=== PATIENT | female | born 2000 | race Caucasian/White ===

== ENCOUNTER 2025-06-21 11:43 | Emergency (ER) | payer BC, OTHER, SELFPAY ==
--- OUTSIDE RECORDS SUMMARY | 2025-01-28 17:30 | XMS_ITS ---
Author Organization [facility] Address [address] [place] [address] Care Team Providers Care Public Relations Officer Name Role Phone Migration, Provider Unavailable Unavailable REASON FOR VISIT Multum To Medispan Conversion Encounter Medications Medication SIG (Take, Route, Frequency, Duration) Notes Start Date End Date Status Loratadine 10 MG Tablet 1 tab(s) orally once a day; Duration: 30 days 04/08/2018 Active Fluticasone Propionate 50 MCG/ACT Suspension 1 spray(s) intranasally once a day; Duration: 30 day(s) 04/08/2018 Active ProAir HFA 90 MCG/INH AEROSOL 2 PUFF(S) INHALED 4 TIMES A DAY; Duration: 30 DAYS *Please review and pick correct strength-formulatio n from [facility] options. If intended option is not shown, discontinue and re-order from Quick Search* 07/09/2017 Active (21 DAY) 30 MCG-1.5 MG TABLET TAKE ONE TABLET BY MOUTH DAILY *Please review for potential replacement for e-prescription and drug interaction check* Active Encounters Encounter Location Date Provider Diagnosis [facility] [address] [place] [address] 01/28/2025 Provider Migration Plan Of Treatment Medication Medication Name Sig Start Date Stop Date Notes (21 DAY) 30 MCG-1.5 MG TABLET TAKE ONE TABLET BY MOUTH DAILY *Please review for potential replacement for e-prescription and drug interaction check* Progress Notes * Chloe SALEHOB: 1 (24 yo F)Acc No.[id number]:01/28/2025 Patient: Chloe Lo Provider: :2000 A ge:24 Y S ex:Female Date:01/28/2025 Address:[address] [place] [address] Subjective: * Chief Complaints: * M ultum To Medispan Conversion Encounter * Medications: T akingLoratadine 10 MG Tablet 1 tab(s) orally once a day Fluticasone Propionate 50 MCG/ACT Suspension 1 spray(s) intranasally once a day ProAir HFA 90 MCG/INH AEROSOL 2 PUFF(S) INHALED 4 TIMES A DAY , Notes to Pharmacist: *Please review and pick correct strength-formulation from [facility] options. If intended option is not shown, discontinue and re-order from Quick Search*Taking Loratadine 10 MG Tablet 1 tab(s) orally once a day Taking Fluticasone Propionate 50 MCG/ACT Suspension 1 spray(s) intranasally once a day Taking ProAir HFA 90 MCG/INH AEROSOL 2 PUFF(S) INHALED 4 TIMES A DAY , Notes to Pharmacist: *Please review and pick correct strength-formulation from Medispan options. If intended option is not shown, discontinue and re-order from Quick Search* Plan: * Treatment: * Electronic signature of Prov ider Migration on 06/21/2025 at 12:53 PM EDT Sign off status: Pending * Provider: Date: 0 01/28/2025 Generated for Wilson coronel/Rocio/Enrique on: 1 12:53 PM EDT
--- OUTSIDE RECORDS SUMMARY | 2025-05-03 08:30 | XMS_ITS | Encounter Summary ---
Author Organization [facility] Address [address] [place] [address] Care Team Providers Care Watch Repairer Name Role Phone Donavon Chang MD Primary Care Provider [phone] Reason for Visit * Diagnostic Imaging (Routine) - Closed Specialty Diagnoses / Procedures Referred By Contac t Referred To Contact Obstetrics and Gynecology Diagnoses First trimester Procedures US Ob Transvaginal Donavon Chang MD [address] [facility] [address] [place] [address] Phone: tel: fax: [facility] [place] [address] Phone: tel:[phone] fax:[phone] Referral ID Status Reason Start Date Expiration Date Visits Re quested Visits Authorized [id number] Closed 05/03/2025 08/02/2026 1 1 Encounter Details Date Type Department Care Team (Latest Contact Info) Description 05/03/2025 8:30 AM EDT Ancillary Procedure [facility] [place] [address] First trimester Social History Tobacco Use Types Packs/Day Years Used Date Smoking Tobacco: Never Smokeless Tobacco: Former Quit: 04/03/2025 Alcohol Use Standard Drinks/Week Comments Not Currently 0 (1 standard drink = 0.6 oz pure alcohol) stopped drinking 04/03 when she found out she was [employer]UDIT-[employer] Answer Date Recorded Frequency of Alcohol Consumption Never 09/29/2019 Average Number of Drinks Not on file 020 Frequency of Binge Drinking Not on file 01/2020 Abuse Screen Answer Date Recorded Unsafe at Home or Work/School Not on file Feels Threatened by Someone? Not on file 07/2023 Does Anyone Keep You from Co ntacting Others or Doint Things Outside the Home? Not on file 06/04/2023 Physical Sign of Abuse Present Not on file 1 Housing Stability Answer Date Recorded Current Living Arrangements Not on file 05/24 Potentially Unsafe Housing Conditions Not on sukh e 06/04/2023 Family and Community Support Answer Miles e Recorded Help with Day-to-Day Activities Not on file 06/04/2023 Lonely or Isolated Not on file 06/04/2023 Employment Answer Date Recorded Do you want help finding or keeping work or a gilbert b? Not on file 06/04/2023 Disabilities Answer Date Recorded Concentrating, Remembering, or Making Decisions Difficulty Not on file 06/04/2023 Doing Errands Independently Difficulty Not on fi le 06/04/2023 Education Answer Date Recorded Help with school or training? Not on file Preferred Language Not on file 06/04/2023 Estimated Date of Delivery Comme nts Yes 12/11/2025 Based on last me nstrual period of 03/06/2025, pt states it was very light and only 3 days when she is usually on her period for 5 days. Sex and Gender Information Value Date Recorded Sex Assigned at Female 04/30/2025 8:39 PM EDT Legal Sex Female 2:53 PM EST Gender Identity Not on file Sexual Orientation Straight 04/30/2025 8: 39 PM EDT documented as of this encounter Plan of Treatment Upcoming Encounters Date Type Department Care Team (Late st Contact Info) Description 06/28/2025 8:40 AM EST Routine [facility] [address] [place] [address] Donavon Chang MD [address] [facility] [address] [place] [id number] documented as of this encounter Procedures Procedure Name Priority Date/Time Associated Diagnosis Comments US OB TRANSVAGINAL Routine 05/03/2025 8: 57 AM EDT First trimester documented in this encounter Results * US Ob Transvaginal (05/03/2025 8:57 AM EDT) Anatomical Region Laterality Modality Body Ultrasound 05/03/2025 8:26 AM EDT Narrative 05/09/2025 1:19 PM EDT PAT NAME: BUTCH SALEH MED REC#: [id number] DA: 2000 PAT GEND: F PAT TYPE: O EXAM MILES: [id number] REF PHYS DONAVON CHANG Indication ======== Dating Comparison Studies There are no relevant prior studies to which this study is being compared Method ======= Voluson E6, Transvaginal ultrasound examination. View: Adequate view ========= Luna . Number of fetuses: 1 Single intrauterine present Dating ====== Method of dating: based on the LMP LMP on: 03/06/2025 GA by LMP 8 w + 2 d ARYA by LMP: 12/11/2025 Ultrasound examination on: 05/03/2025 GA by U/S based upon: CRL GA by U/S 8 w + 4 d ARYA by U/S: 12/09/2025 Assigned: based on the LMP, selected on 05/03/2025 Assigned GA 8 w + 2 d Assigned ARYA: 12/11/2025 length 280 d Biometry Standard FHR 176 bpm CRL 20.1 mm 8w 4d 98% [facility] General Evaluation Cardiac activity present. Placenta Too early to evaluate. Amniotic fluid normal. Maternal Structures Uterus / Cervix Uterus: Visualized Uterus position: Retroverted Cervix: Visualized Ovaries / Tubes / Adnexa Rt ovary: Visualized Rt ovary D1 16.9 mm Rt ovary D2 18.5 mm Rt ovary D3 8.0 mm Rt ovary Vol 1.3 cm Lt ovary: Visualized Lt ovary D1 22.2 mm Lt ovary D2 26.1 mm Lt ovary D3 16.90 mm Lt ovary Vol 5.1 cm Impression Single viable intrauterine with normal cardiac activity Recommendation Follow-up as clinically indicated. Colored Leather Setter: RT Ursula Physician: Donavon Chang MD, FACOG Electronically signed by: Donavon Chang MD, FACOG at: 13:19 Procedure Note Donavon Chang MD - 05/09/2025 PAT NAME: BUTCH SALEH MED REC#: [id number] DA: 2000 PAT GEND: F PAT TYPE: O EXAM MILES: [id number] REF PHYS DONAVON CHANG Indication ======== Dating Comparison Studies There are no relevant prior studies to which this study is beingcompared Method ======= Voluson E6, Transvaginal ultrasound examination. View: Adequate view ========= Luna . Number of fetuses: 1 Single intrauterine present Dating ====== Method of dating:based on the LMP LMP on:03/06/2025 GA by LMP8 w + 2 d ARYA by LMP:12/11/2025 Ultrasound examination on:05/03/2025 GA by U/S based upon:CRL GA by U/S8 w + 4 d ARYA by U/S:12/09/2025 Assigned:based on the LMP, selected on 05/03/2025 Assigned GA8 w + 2 d Assigned ARYA:12/11/2025 [id number] d Biometry Standard [id number] bpm CRL20.1 mm 8w 4d 98% [facility] General Evaluation Cardiac activity present. Placenta Too early to evaluate. Amniotic fluid normal. Maternal Structures Uterus / Cervix Uterus:Visualized Uterus position:Retroverted Cervix:Visualized Ovaries / Tubes / Adnexa Rt ovary:Visualized Rt ovary D116.9 mm Rt ovary D218.5 mm Rt ovary D38.0 mm Rt ovary Vol1.3 cm Lt ovary:Visualized Lt ovary D122.2 mm Lt ovary D226.1 mm Lt ovary D316.90 mm Lt ovary Vol5.1 cm Impression Single viable intrauterine with normal cardiac activity Recommendation Follow-up as clinically indicated. Colored Leather Setter: Yris Brito RT Physician: Donavon Chang MD, FACOG Electronically signed by: Donavon Chang MD, FACOG at: 13:19 us Donavon Chang MD [facility] [place] Final Result documented in this encounter Visit Diagnoses Diagnosis First trimester state, incidental documented in this encounter Care Teams Watch Repairer Relationship Specialty Start Date End Date Donavon Chang MD [address] [facility] [address] [place] [id number] PCP - General 04/30/25 documented as of this encounter
--- OUTSIDE RECORDS SUMMARY | 2025-05-03 08:50 | XMS_ITS | Encounter Summary ---
[facility] Address [address] [place] [address] Care Team Providers Care Microbiology Instructor Name Role Phone Sumi Chang MD Primary Care Provider [phone] Reason for Visit * Reason Comments Initial Visit Encounter Details Date Type Department Care Team (Late st Contact Info) Description 05/03/2025 8:50 AM EDT Initial [facility] OBGYN [address] [place] [address] Sumi Chang MD [address] [facility] [address] [place] [address] GA: 8w2d Social History Tobacco Use Types Packs/Day Years [...] e 06/04/2023 Family and Community Support Answer Marcos e Recorded Help with Day-to-Day Activities Not [...] PM EDT documented as of this encounter Last Filed Vital Signs Vital Sign Reading Time Taken Comments Blood Pressure 112/78 05/03/2025 9:29 AM EDT Pulse - - Temperature - - Respiratory Rate - - Oxygen Saturation - - Inhaled Oxygen Concentration - - Weight 66.2 kg (146 lb) 05/03/2025 9:29 AM EDT Height - - Body Mass Index 20.95 04/06/2025 6:34 PM EDT documented in this encounter Progress Notes * Sumi Chang MD - 05/03/2025 8:50 AM EDT Images from the original note were not included. Initial ob visit CC- Here for care of Chloe Saleh is a 24 y.o. female, , who presents for her first obstetrical visit. Patient's last menstrual period was 03/06/2025.. Her ARYA is 12/11/2025, by Last Menstrual Period. Current GA is 8w2d. Initial positive test date : 04/03/25, UPT Her periods are every 29 days. Prior obstetric issues: none Patient's past medical history is significant for: none. Family history of genetic issues (includes FOB): maternal cousin with autism Prior infections concerning in (Rash, fever in last 2 weeks): No Varicella Hx - vaccinated Prior testing for Cystic Fibrosis Carrier or Sickle Cell Trait- none Prepregnancy BMI - Body mass index is 20.95 kg/m??. History of STD: yes GC/CHLAMYDIA Hx of HSV for patient or partner: no Ultrasound Today: yes OB History Para Term AB Living 1 SAB IAB Ectopic Molar Multiple Live Births # Outcome Date GA Lbr Red/2nd Weight Sex Type Anes PTL Lv 1 Current Additional Pertinent History Last Pap : 2023 Result: neg in [facility] Last Completed Pap Smear This patient has no relevant Health Maintenance data. History of abnormal Pap smear: no Family history of uterine, colon, breast, or ovarian cancer: yes - MGM-breast Feelings of Anxiety or Depression: no Tobacco Usage?: No Alcohol/Drug Use?: NO Over the age of 35 at delivery: no Genetic Screening: desires cell free DNA Flu Status: Desires at future appt when in stock PMH Current Outpatient Medications: Vit-Fe Fumarate-FA ( PO), Take by mouth., Disp: , Rfl: Past Medical History: Diagnosis Date Asthma Past Surgical History: Procedure Laterality Date KNEE ACL RECONSTRUCTION WISDOM TOOTH EXTRACTION Review of Systems Review of Systems Patient Reports: nausea, vomiting 2-3 times per week Patient Denies:excessive nausea , excessive vomiting, and vaginal bleeding All systems reviewed and otherwise normal. I have reviewed and agree with the HPI, ROS, and historical information as entered above. Sumi Chang MD BP 112/78 Wt 66.2 kg (146 lb) LMP 03/06/2025 Comment: pt states it was very light and only 3 days when she is usually on her period for 5 days. BMI 20.95 kg/m?? The additional following portions of the patient's history were reviewed and updated as appropriate: allergies, current medications, past family history, past medical history, past social history, past surgical history, and problem list. Physical Exam General: well developed; well nourished no acute distress mentation appropriate Chest/Respiratory: No labored breathing, normal respiratory effort, normal appearance, no respiratory noises noted Heart: not examined Thyroid: not examined Breasts: Not performed. Abdomen: soft, non-tender; no masses Pelvis: Clinical staff was present for exam External genitalia: normal appearance of the external genitalia including Bartholin's and [place]'s glands. : urethral meatus normal; urethra normal: Vaginal: normal pink mucosa without prolapse or lesions. Cervix: normal appearance. Assessment and Plan Problem List Items Addressed This Visit - Primary Overview NIPT Relevant Orders Obstetric Panel HIV-1 / O / 2 Ag / Antibody Urine Culture - Urine, Urine, Clean Catch Urinalysis With Microscopic - Urine, Clean Catch Chlamydia trachomatis, Neisseria gonorrhoeae, PCR - Urine, Urine, Clean Catch Urine Drug Screen - Urine, Clean Catch LIQUID-BASED PAP SMEAR WITH HPV GENOTYPING IF ASCUS (GYPSY,COR,MAD) at 8w2d Reviewed routine care with the office and educational materials given Lab(s) Ordered Discussed options for genetic testing including first trimester nuchal translucency screen, geneticdisease carrier testing, quadruple screen, and NIPT Patient is on vitamins Activity recommendation : 150 minutes/week of moderate intensity aerobic activity unless we limit for bleeding, hypertension or other complication Return in about 1 month (around 06/02/2025) for F/U . uSmi Chang MD 05/03/2025 documented in this encounter Plan of Treatment Upcoming Encounters Date Type Department Care Team (Late st Contact Info) Description 06/28/2025 8:40 AM EST Routine [facility] OBGYN [address] [place] [address] Sumi Chang MD [address] [facility] [address] [place] [address] documented as of this encounter Procedures Procedure Name Priority Date/Time Associated Diagnosis Comments CHLAMYDIA TRACHOMATIS, NEISSERIA GONORRHOEAE, PCR Routine 05/03/2025 10:12 AM EDT 8 weeks gestation of ~MICROSCOPIC EXAMINATION Routine 05/03/2025 10:12 AM EDT HIV-1/O/2 ANTIGEN/ANTIBODY Routine 05/03/2025 10:12 AM EDT 8 weeks gestation of URINE DRUG SCREEN Routine 05/03/2025 10: 12 AM EDT 8 weeks gestation of OBSTETRIC PANEL Routine 05/03/2025 10:12 AM EDT 8 weeks gestation of URINALYSIS AND MICROSCOPIC Routine 05/03/2025 10:12 AM EDT 8 weeks gestation of URINE CULTURE Routine 05/03/2025 10:12 AM EDT 8 weeks gestation of LIQUID-BASED PAP SMEAR WITH HPV GENOTYPING IF ASCUS, [facility] (GYPSY,COR,MAD) Routine 05/03/2025 10:10 AM EDT 8 weeks gestation of documented in this encounter Results * Microscopic Examination - (05/03/2025 10:12 AM EDT) WBC, UA 0-2 /HPF [facility] Comment:REFERENCE RANGE: Non e Seen, 0-2 RBC, UA 0-2 /HPF [facility] Comment:REFERENCE RANGE: Non e Seen, 0-2 Epithelial Cells (non renal) 0-2 /HPF [facility] Comment:REFERENCE RANGE: Non e Seen, 0-2 Cast Type Comment [facility] Comment:HYALINE CASTS, UA 0- 2 /LPF None Seen N Bacteria, UA Comment None Seen /HPF [facility] Comment:None Seen 05/03/2025 10:1 2 AM EDT 05/03/2025 Narrative [facility] ([facility]ATORY) - 05/04/2025 7:09 AM EDT Performed at: [address] [place] [id number] Masticator: Rolly Fuentes MD, Phone: [phone] Patient Fasting: N us Sumi Chang MD URINE ORDERABLES Final Result [facility] ([facility]) [address] [place] [address], [facility] [address] [place] [address], * (ABNORMAL) Urine Drug Screen - Urine, Clean Catch (05/03/2025 10:12 AM EDT) [facility] Amphetamine, Urine Qual Negative Cutoff=10 00 ng/mL [facility] Barbiturates Screen, Urine Negative Cutoff=20 0 ng/mL [facility] Benzodiazepine Screen, Urine Negative Cutoff=20 0 ng/mL [facility] THC Screen, Urine Positive(A) Cutoff=20 ng/mL [facility] Cocaine Screen, Urine Negative Cutoff=30 0 ng/mL [facility] Opiate Screen, Urine Negative Cutoff=30 0 ng/mL [facility] Comment:Opiate test includes Codeine, Morphine, Hydromorphone, Hydrocodone. Oxycodone/Oxymorph one, Urine Negative Cutoff=10 0 ng/mL [facility] Comment:Test includes Oxycod one and Oxymorphone Phencyclidine (PCP), Urine Negative Cutoff=25 ng/mL [facility] Methadone Screen, Urine Negative Cutoff=30 0 ng/mL [facility] Propoxyphene Screen Negative Cutoff=30 0 ng/mL [facility] Creatinine, Urine 205.4 20.0 - 300.0 mg/dL [facility] pH, UA 6.0 4.5 - 8.9 [facility] Please note Comment [facility] Comment: This assay provides a preliminary unconfirmed analytical test result that may be suitable for clinical management of patients in certain situations. Drug-test results should be interpreted in the context of clinical information. Patient metabolic variables, specific drug chemistry, and specimen characteristics can affect test outcome. Technical consultation is available if a test result is inconsistent with an expected outcome. Email: [email or web address] Urine Urine specimen obtained by clean catch procedure / Unknown 05/03/2025 10:12 AM EDT 05/03/2025 Narrative [facility] ([facility]) - 05/05/2025 8:12 AM EDT Performed at: - [facility] [address] [place], [place] [id number] Masticator: Shandra Infante PhD, Phone: [phone] Patient Fasting: N Sumi Chang MD URINE ORDERABLES Final Result Performing Organization Address [facility]/ZIP Co de Phone Number [facility] [address] [place] [address], [facility] [address] [place] [address], * Chlamydia trachomatis, Neisseria gonorrhoeae, PCR - Urine, Urine, Clean Catch (05/03/2025 10:12 AM EDT) [facility] Chlamydia trachomatis, JASON Negative Negative [facility] Neisseria gonorrhoeae, JASON Negative Negative [facility] Urine Urine specimen obtained by clean catch procedure / Unknown 05/03/2025 10:12 AM EDT 05/03/2025 Comment: CD- [id number] Narrative [facility] (AMBULATORY) - 05/05/2025 7:09 AM EDT Performed at: [address] [id number] Masticator: Trinity Fsicher MD, Phone: [phone] Patient Fasting: N Sumi Chang MD MICROBIOLOGY - GENERAL ORDERABLE S Final Result Performing Organization Address City/[facility] de Phone Number [facility] [address] [place] [address], [place] [phone] [facility] [address] [place] [address], [place] [phone] * (ABNORMAL) Urinalysis With Microscopic - Urine, Clean Catch (05/03/2025 10:12 AM EDT) Pathologist [facility] Specific Simon, UA 1.023 1.005 - 1.030 [facility] pH, UA 6.5 5.0 - 8.0 [facility] Color, UA Yellow [facility] Comment:REFERENCE RANGE: Yel low, Straw Appearance, UA Clear Clear [facility] Leukocytes, UA Negative Negative [facility] Protein Trace(A) Negative [facility] Glucose, UA Negative Negative [facility] Ketones Negative Negative [facility] Blood, UA Negative Negative [facility] Bilirubin, UA Negative Negative [facility] Urobilinogen, UA Comment [facility] Comment: 0.2 E.U./dL REFERENCE RANGE: 0.2 - 1.0 E.U./dL Nitrite, UA Negative Negative [facility] Urine Urine specimen obtained by clean catch procedure / Unknown 05/03/2025 10:12 AM EDT 05/03/2025 Narrative [facility] ([facility]) - 05/04/2025 7:09 AM EDT Performed at: [address] [place] [id number] Masticator: Rolly Fuentes MD, Phone: [phone] Patient Fasting: N Sumi Chang MD URINE ORDERABLES Final Result [facility] ([facility]ORY) [address] [place] [address], [facility] [address] [place] [id number], * Urine Culture - Urine, Urine, Clean Catch (05/03/2025 10:12 AM EDT) Urine Culture Final report [facility] Result 1 No growth [facility] Urine Urine specimen obtained by clean catch procedure / Unknown 05/03/2025 10:12 AM EDT 05/03/2025 Comment:CONRAD CD- [id number] Narrative [facility] (AMBUL[facility]ORY) - 05/05/2025 7:09 AM EDT Performed at: [address] [id number] Masticator: Conrado Rowell PhD, Phone: [phone] Patient Fasting: N Sumi Chang MD MICROBIOLOGY - GENERAL ORDERABLE S Final Result Performing Organization Address City/[facility]/ZIP Co de Phone Number [facility] [address] [place] [address], [facility] [address] [place] [phone], * HIV-1 / O / 2 Ag / Antibody (05/03/2025 10:12 AM EDT) Pathologist [facility] HIV Screen 4th Gen w/RFX (Reference) Non Reactive Non Reactive [facility] Comment: HIV-1/HIV-2 antibodies and HIV-1 p24 antigen were NOT detected. There is no laboratory evidence of HIV infection. HIV Negative Blood 05/03/2025 10:1 2 AM EDT 05/03/2025 Narrative [facility] - 05/04/2025 7:09 AM EDT Performed at: 02 - [facility] [address] [place] [id number] Masticator: Conrado Rowell PhD, Phone: [phone] Patient Fasting: N Sumi Chang MD LAB BLOOD ORDERABLES Final Resul t Performing Organization Address [facility] Co de Phone Number [facility] (AMBULATORY) [address] [place] [address], [facility] [address] [place] [address], * (ABNORMAL) Obstetric Panel (05/03/2025 10:12 AM EDT) [facility] Hepatitis B Surface Ag Negative Negative [facility] Hep C Virus Ab Non Reactive Non Reactive [facility] Comment: HCV antibody alone does not differentiate between previously resolved infection and active infection. Equivocal and Reactive HCV antibody results should be followed up with an HCV RNA test to support the diagnosis of active HCV infection. RPR Non Reactive Non Reactive [facility] Rubella Antibodies, IgG 1.75 Immune >0.99 index [facility] Comment: Non-immune <0.90 Equivocal 0.90 - 0.99 Immune >0.99 ABO Type A [facility] Rh Factor Positive [facility] Comment: Please note: Prior records for this patient's ABO / Rh type are not available for additional verification. Antibody Screen Negative Negative [facility] WBC 10.6 3.4 - 10.8 x10E3/uL [facility] RBC 4.65 3.77 - 5.28 x10E6/uL [facility] Hemoglobin 14.3 11.1 - 15.9 g/dL [facility] Hematocrit 43.0 34.0 - 46.6 % [facility] MCV 93 79 - 97 fL [facility] MCH 30.8 26.6 - 33.0 pg [facility] MCHC 33.3 31.5 - 35.7 g/dL [facility] RDW 12.3 11.7 - 15.4 % [facility] Platelets 381 150 - 450 x10E3/uL [facility] Neutrophil Rel % 70 Not Estab. % [facility] Lymphocyte Rel % 24 Not Estab. % [facility] Monocyte Rel % 5 Not Estab. % [facility] Eosinophil Rel % 1 Not Estab. % [facility] Basophil Rel % 0 Not Estab. % [facility] Neutrophils Absolute 7.4(H) 1.4 - 7.0 x10E3/uL [facility] Lymphocytes Absolute 2.5 0.7 - 3.1 x10E3/uL [facility] Monocytes Absolute 0.6 0.1 - 0.9 x10E3/uL [facility] Eosinophils Absolute 0.1 0.0 - 0.4 x10E3/uL [facility] Basophils Absolute 0.0 0.0 - 0.2 x10E3/uL [facility] Immature Granulocyte Rel % 0 Not Estab. % [facility] Immature Grans Absolute 0.0 0.0 - 0.1 x10E3/uL [facility] Blood 05/03/2025 10:1 2 AM EDT 05/03/2025 Narrative [facility] ([facility]) - 05/04/2025 10:11 AM EDT Performed at: 01 - [facility] [id number] Masticator: Conrado Rowell PhD, Phone: [phone] Patient Fasting: N us Sumi Chang MD LAB BLOOD ORDERABLES Final Resul t [facility] (AMBULATORY) [address] [place] [address], [place] [phone] [facility] [address] [place] [address], [place] [phone] * LIQUID-BASED PAP SMEAR WITH HPV GENOTYPING IF ASCUS (GYPSY,COR,MAD) (05/03/2025 10:10 AM EDT) Reference Lab Report FINAL [facility] CYTOLOGY REPORT ---- DIAGNOSIS: Negative for intraepithelial lesion or malignancy Multiple factors can influence accuracy of Pap tests; therefore, screening at regular intervals is necessary for early cancer detection. ---- Adequacy SATISFACTORY FOR EVALUATION Transformation zone is present. Source CERVICAL LMP None provided CLINICAL HISTORY: Routine 8 weeks gestation of The pap smear is a screening test with limited sensitivity, and false negative tests results can occur. ThinPrep Pap imagined by [employer] (AI assisted system). Screened by SYLVIA WOODWARD (ASCP) 05/04/2025 2:50 PM EDT [facility] ThinPrep Vial Cervix uteri structure / Unknown Collection / Unknown 05/03/2025 10:10 AM EDT 05/03/2025 10:10 AM EDT us Sumi Chang MD PATHOLOGY/CYTOLOGY ORDERABLES Fi nal Result [facility]
[address] [place] [address], documented in this encounter Visit Diagnoses Diagnosis 8 weeks gestation of - Primary documented in this encounter Care Teams Microbiology Instructor Relationship Specialty Start Date End Date Sumi Chang MD [address] [facility] [address] [place] [id number] PCP - General 04/30/25 documented as of this encounter
--- OUTSIDE RECORDS SUMMARY | 2025-05-09 13:10 | XMS_ITS | Encounter Summary ---
Author Organization [facility] Address [address] [place] [address] Care Team Providers Care Bag Worker Name Role Phone Sumi Chang MD Primary Care Provider [phone] Encounter Details Date Type Department Care Team (Late st Contact Info) Description 05/09/2025 1:10 PM EDT Lab [facility] OBGYN [address] [place] [address] care, first in first trimester (Primary Dx) Social History Tobacco Use Types Packs/Day Years [...] Info) Description 06/28/2025 8:40 AM EST Routine [facility] OBGYN [address] [place] [address] Sumi Chang MD [address] [place] [address] documented as of this encounter Procedures Procedure Name Priority Date/Time Associated Diagnosis Comments [id number] PLUS CORE+SCA+ESS Routine 05/09/2025 1:21 PM EDT care, first in first trimester documented in this encounter Results * [id number] PLUS Core+SCA+ESS - Blood, (05/09/2025 1:21 PM EDT) Gestation Luna [facility] Fraction 12% [facility] Gestational Age >9: Yes [facility] Result Negative [facility] Manager Hair Comments Comment [facility] Comment: This specimen showed an expected representation of chromosome 21, 18 and 13 material. Clinical correlation is suggested. Approved By Comment [facility] Comment:Gus Silva MD , PhD, Director, [employer] TRISOMY 21 (DOWN SYNDROME) Negative [facility] TRISOMY 18 (BOATENG SYNDROME) Negative [facility] TRISOMY 13 (PATAU SYNDROME) Negative [facility] SEX Comment [facility] Comment:Consistent with Male MONOSOMY X (GUTIERREZ SYNDROME) Not Detected [facility] XYY (BRADY SYNDROME) Not Detected [facility] XXY (KLINEFELTER SYNDROME) Not Detected [facility] XXX (TRIPLE X SYNDROME) Not Detected [facility] 22Q11 DELETION (DIGEORGE) Not Detected [facility] 15Q11 DELETION (PW ANGELMAN) Not Detected [facility] 11Q23 DELETION (PARIS) Not Detected [facility] 8Q24 DELETION (COLLETTE-GIEDION) Not Detected [facility] 5P15 DELETION (Cri-du-chat) Not Detected [facility] 4P16 DELETION (ELLSWORTH-HIRSCHHORN) Not Detected [facility] 1P36 DELETION SYNDROME Not Detected [facility] TRIOSOMY 16 Not Detected [facility] TRISOMY 22 Not Detected [facility] NEGATIVE PREDICTIVE VALUE Note [facility] Comment: The Negative Predictive Value (NPV) for trisomy 21, 18, and 13 is greater than 99%. The NPV for SCA and ESS cannot be calculated as SCA and ESS are only reported when an abnormality is detected. POSITIVE PREDICTIVE VALUE N/A [facility] About The Test Comment [facility] Comment: The MaterniT(R) 21 PLUS laboratory-developed test (LDT) analyzes circulating cell-free DNA from a maternal blood sample. This test is used for screening purposes and not diagnostic. Clinical correlation is recommended. Validation data on twin pregnancies is limited and the ability of this test to detect aneuploidy in higher multiple gestations has not yet been validated. Test Method Comment [facility] Comment: Circulating cell-free DNA was purified from the plasma component of maternal blood. The extracted DNA was then converted into a genomic DNA library for aneuploidy analysis of chromosomes 21, 18, and 13 via next generation sequencing.[1] Optional findings based on the test order include sex chromosome aneuploidy (SCA)[2], and enhanced sequencing series (ESS)[3], which will only be reported on as an additional finding when an abnormality is detected. SCA testing includes information on X and Y representation, while ESS testing includes deletions in selected regions (22q, 15q, 11q, 8q, 5p, 4p, 1p) and trisomy of chromosomes 16 and 22. Performance Comment [facility] Comment: The performance characteristics of the MaterniT(R) 21 PLUS laboratory-developed test (LDT) have been determined in a clinical validation study with women at increased risk for chromosomal aneuploidy.[1-4] PERFORMANCE CHARACTERISTICS Note [facility] Comment: ! Sex ! Accuracy: 99.4% ! ! ! ! Region (associated syndrome) ! Est. Sens# ! Est. Spec ! ! ! ! Trisomy 21 (Down Syndrome) ! 99.1% ! 99.9% ! ! ! ! Trisomy 18 (Boateng Syndrome) ! >99.9% ! 99.6% ! ! ! ! Trisomy 13 (Patau Syndrome) ! 91.7% ! 99.7% ! ! ! ! Sex Chromosome Aneuploidies## ! 96.2% ! 99.7% ! ! ! * As reported in [facility] database nstd37 [https://www.ncbi.nlm.nih.gov/dbvar/studies/nstd37/ ] # Estimated Sensitivity. Sensitivity estimated across the observed size distribution of each syndrome [per ISCA database nstd37] and across the range of fractions observed in routine clinical NIPT. Actual sensitivity can also be influenced by other factors such as the size of the event, total sequence counts, amplification bias, or sequence bias. ## Luna gestation only. Limitations of the Test Comment [facility] Comment: While the results of these tests are highly reliable, discordant results, including inaccurate sex prediction, may occur due to placental, maternal, or mosaicism or neoplasm; vanishing twin; prior maternal organ transplant; or other causes. These tests are screening tests and not diagnostic; they do not replace the accuracy and precision of diagnosis with CVS or amniocentesis. A patient with a positive test result should be referred for genetic counseling and offered invasive diagnosis for confirmation of test results.[5] The results of this testing, including the benefits and limitations, should be discussed with a qualified healthcare provider. management decisions, including termination of the , should not be based on the results of these tests alone. The healthcare provider is responsible for the use of this information in the management of their patient. Sex chromosomal aneuploidies are not reportable for known multiple gestations. A negative result does not ensure an unaffected nor does it exclude the possibility of other chromosomal abnormalities or defects which are not a part of these tests. An uninformative result may be reported, the causes of which may include, but are not limited to, insufficient sequencing coverage, noise or artifacts in the region, amplification or sequencing bias, or insufficient fraction. These tests are not intended to identify pregnancies at risk for neural tube defects or ventral wall defects. Testing for whole chromosome abnormalities (including sex chromosomes) and for subchromosomal abnormalities could lead to the potential discovery of both and maternal genomic abnormalities that could have major, minor, or no, clinical significance. Evaluating the significance of a positive or a non-reportable result may involve both invasive testing and additional studies on the mother. Such investigations may lead to a diagnosis of maternal chromosomal or subchromosomal abnormalities, which on occasion may be associated with benign or malignant maternal neoplasms. These tests may not accurately identify triploidy, balanced rearrangements, or the precise location of subchromosomal duplications or deletions; these may be detected by diagnosis with CVS or amniocentesis. The ability to report results may be impacted by maternal BMI, maternal weight, maternal systemic lupus erythematosus (SLE) and/or by certain pharmaceutical agents such as low molecular weight heparin (for example: Lovenox(R), Xaparin(R), Clexane(R) and Fragmin(R)). Note Comment [facility] Comment: [employer]. is a subsidiary of [employer], using the brand [employer]. This test was developed and its performance characteristics determined by [employer]. It has not been cleared or approved by the Food and Drug Administration. This laboratory is certified under the Clinical Laboratory Improvement Amendments (CLIA) as qualified to perform high complexity clinical laboratory testing and accredited by the [employer] (CAP). If there is future clinical need for adding MaterniT GENOME testing, this specimen will be available until term. [facility] samples will not be retained beyond [address] [facility] patients will have to send a new sample for re-sequencing ([facility] Test Code: 118569). References Comment [facility] Comment: 1. Autumn GARCIA, et al. Hedy Med. 2012;14(3):296-305. 2. Nevaeh EVANGELISTA, et al. Prenat Diag. 2013;33(6):591-597. 3. Nelson Jarrett et al. Clin Chem. 2015 Apr;61(4):608-616. 4. Autumn GARCIA et al. Hedy Med. 2011;13(11):913-920. 5. ACOG/SMFM Practice Bulletin No. 226, May 2020. Blood 05/09/2025 1:21 PM EDT 05/09/2025 Narrative [facility] (AMBULATORY) - 05/13/2025 6:09 AM EDT Performed at: 01 - [facility] [address] [place], [place] [id number] Manager Hair: Gus Ross, Phone: [phone] Patient Fasting: N Sumi Chang MD GENETIC TESTING Final Result [facility] ([facility]) [address] [place] [address], [place] [phone] [facility] [address] [place] [id number], [place] [phone] documented in this encounter Visit Diagnoses Diagnosis care, first in first trimester- Primary documented in this encounter Care Teams Bag Worker Relationship Specialty Start Date End Date Sumi Chang MD [address] [facility] [address] [place] [address] PCP - General 04/30/25 documented as of this encounter
--- OUTSIDE RECORDS SUMMARY | 2025-05-31 13:30 | XMS_ITS | Encounter Summary ---
Author Organization [facility] Address [address] [place] [address] Care Team Providers Care Budget Examiner Name Role Phone Sumi Chang MD Primary Care Provider [phone] Reason for Visit * Reason Comments Routine Visit 12w2d Encounter Details Date Type Department Care Team (Late st Contact Info) Description 05/31/2025 1:30 PM EDT Routine [facility] OBGYN [address] [place] [address] Sumi Chang MD [address] [facility] [address] [place] [id number] [place]: 12w2d Social History Tobacco Use Types Packs/Day Years [...] Sign Reading Time Taken Comments Blood Pressure 112/60 05/31/2025 1:52 PM EDT Pulse - - Temperature - - Respiratory Rate - - Oxygen Saturation - - Inhaled Oxygen Concentration - - Weight 68 kg (150 lb) 05/31/2025 1:52 PM EDT Height - - Body Mass Index 21.52 04/06/2025 6:34 PM EDT documented in this encounter Progress Notes * Sumi Chang MD - 05/31/2025 1:30 PM EDT Images from the original note were not included. OB FOLLOW UP CC- Here for care of Chloe Saleh is a 24 y.o. 12w2d patient being seen today for her obstetrical follow up visit. Patient reports lower back pain in the morning, denies any urinary symptoms. Her care is complicated by (and status) : Patient Active Problem List Diagnosis Genetic testing?: already completed and was normal. NOB labs reviewed Flu Status: Desires at future appt Ultrasound Today: No ROS - Patient Denies: leaking of fluid, vaginal bleeding, dysuria, excessive vomiting, and more than 6 contractions per hour Movement: absent Other than what is documented in the HPI, all other systems reviewed and are negative. The additional following portions of the patient's history were reviewed and updated as appropriate: allergies, current medications, past family history, past medical history, past social history, past surgical history, and problem list. I have reviewed and agree with the HPI, ROS, and historical information as entered above. Sumi Chang MD BP 112/60 Wt 68 kg (150 lb) LMP 03/06/2025 Comment: pt states it was very light and only 3 dayswhen she is usually on her period for 5 days. BMI 21.52 kg/m?? EXAM: Vitals BP: 112/60 Weight: 68 kg (150 lb) Heart Rate: + Urine Glucose Read-only: Negative Urine Protein Read-only: Negative Assessment and Plan Problem List Items Addressed This Visit Overview NIPT low risk Relevant Orders POC Urinalysis Dipstick (Completed) Other Visit Diagnoses care, antepartum, unspecified - Primary Relevant Orders POC Urinalysis Dipstick (Completed) at 12w2d Labs reviewed from New OB Visit. Counseled on genetic testing, carrier status and option for NT screen- done and low risk Activity and Exercise discussed. Patient is on vitamins Return in about 1 month (around 07/01/2025) for F/U . Sumi Chang MD 05/31/2025 documented in this encounter Plan of Treatment Upcoming Encounters Date Type Department Care Team (Late st Contact Info) Description 06/28/2025 8:40 AM EST Routine [facility] OBGYN [address] [place] [address] Sumi Chang MD [address] [facility] [address] [place] [address] documented as of this encounter Procedures Procedure Name Priority Date/Time Associated Diagnosis Comments POCT URINALYSIS DIPSTICK, MANUAL Routine 05/31/2025 1:47 PM EDT care, antepartum, unspecified 12 weeks gestation of documented in this encounter Results * POC Urinalysis Dipstick (05/31/2025 1:47 PM EDT) Glucose, UA Negative Negative mg/dL [facility] Protein, POC Negative Negative mg/dL [facility] Urine 05/31/2025 1:47 PM EDT Sumi Chang MD POINT OF CARE TEST ORDERABLES nal Result [facility]
[address] [place] [address], documented in this encounter Visit Diagnoses Diagnosis care, antepartum, unspecified - Primary 12 weeks gestation of documented in this encounter Care Teams Budget Examiner Relationship Specialty Start Date End Date Sumi Chang MD [address] [place] [address] PCP - General 04/30/25 documented as of this encounter
[2025-06-21 11:48] VITALS: BP 153/86; PULSE 94; RESP 16; TEMP 36.8; O2SAT 98; BMI 22.1
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
[2025-06-21 12:31] VITALS: BP 118/75; PULSE 87; O2SAT 97
[2025-06-21 12:37] LABS: Microscopic, Urine URINE MICROSCOPIC (MICROSCOPIC)
[2025-06-21 12:40] LABS: Hematocrit 40.8 % (37.0-47.0); Hemoglobin 14.4 g/dL (12.2-16.2); Immature Granulocytes % 0.4 %; Mean Corpuscular HGB Conc 35.3 g/dL (31.8-35.4); Mean Corpuscular Hemoglobin 31.0 pg (27.0-31.2); Mean Corpuscular Volume 87.9 fl (81-99); Nucleated Red Blood Cells % 0 %; Platelet Count 370 K/mm3 (142-424); Red Blood Count 4.64 M/mm3 (4.20-5.40); Red Cell Distribution Width-SD 37.6 fL; White Blood Count 12.4 K/mm3 (4.8-10.8)
[2025-06-21 12:46] LABS: Bilirubin,Urine Negative (Negative); Color,Urine YELLOW (Yellow); Glucose,Urine (UA) Negative (Negative); Ketones,Urine Negative (Negative); Leukocyte Esterase,Urine Negative (Negative); PH,Urine 7.0 (5.0-8.5); Protein,Urine Negative (Negative); Specific Gravity, Urine 1.015 (1.005-1.030); Urobilinogen,Urine 0.2 EU/dl (0.2)
[2025-06-21 12:49] LABS: Alanine Aminotransferase 18 U/L (12-78); Albumin Level 3.9 g/dl (3.5-5.0); Albumin/Globulin Ratio 0.9 (1.1-1.8); Alkaline Phosphatase 48 U/L (38-126); Anion Gap 10.8 mEq/L (5-15); Aspartate Amino Transferase 27 U/L (14-36); Bilirubin,Total 0.5 mg/dl (0.2-1.3); Blood Urea Nitrogen 11 mg/dl (7-17); Calcium 9.8 mg/dl (8.4-10.2); Carbon Dioxide 24 mmol/L (22.0-30.0); Chloride 103 mmol/L (98-107); Creatinine Clearance Estimated 116 mL/min (50-200); Creatinine,Serum 0.80 mg/dl (0.52-1.04); Estimated Glomerular Filt Rate 88 ml/min (>60); GFR (African American) 107 ML/MIN (>60); Globulin 4.4 g/dL (1.3-3.2); Glucose 86 mg/dl (74-100); Lipase 114 U/L (23-300); Potassium 3.8 mmoL/L (3.5-5.1); Sodium 134 mmol/L (136-145); Total Protein,Serum 8.3 g/dl (6.3-8.2)
--- OUTSIDE RECORDS SUMMARY | 2025-06-21 12:53 | XMS_ITS | Clinical Summary ---
Author Organization [facility] Address [address] [place] [address] Care Team Providers Care Dispatcher Service Name Role Phone Sumi Chang MD Primary Care Provider [phone] Allergies No known active allergies Medications Vit-Fe Fumarate-FA ( PO) Take by mouth. Active Active Problems Problem Noted Date Diagnosed Date 05/03/2025 Overview (05/31/2025): NIPT low risk Estimated Date of Delivery Comme nts Yes 12/11/2025 Based on last me nstrual period of 03/06/2025, pt states it was very light and only 3 days when she is usually on her period for 5 days. Encounters Date Type Department Care Team Description 05/31/2025 1:30 PM EDT Routine [facility] [place] [address] Sumi Chang MD GA: 12w2d 05/31/2025 Travel 05/09/2025 1:10 PM EDT Lab [facility] [place] [address] care, first in first trimester (Primary Dx) 05/09/2025 Travel 05/03/2025 8:50 AM EDT Initial [facility] [place] [address] Sumi Chang MD GA: 8w2d 05/03/2025 8:30 AM EDT Ancillary Procedure [facility] [place] [address] First trimester 05/03/2025 Travel 04/06/2025 6:29 PM EDT - 04/06/2025 6:59 PM EDT Hospital Encounter [facility] [address] [facility] [address] [place] [address] Ramona Rowe APRN , unspecified gestational age (Primary Dx); Nausea and vomiting, unspecified vomiting type Discharge Disposition: Home or Self Care 04/06/2025 Travel from Last 3 Months Social History Tobacco Use Types Packs/Day Years Used Date Smoking Tobacco: Never Smokeless Tobacco: Former Quit: 04/03/2025 Tobacco Cessation:Counseling Given: No Alcohol Use Standard Drinks/Week Comments Not Currently [...] Orientation Straight 04/30/2025 8: 39 PM EDT Last Filed Vital Signs Vital Sign Reading Time Taken Comments Blood Pressure 112/60 05/31/2025 1:52 PM EDT Pulse 94 04/06/2025 6:34 PM EDT Temperature 36.4 C (97.5 F) 04/06/2025 6:34 PM EDT Respiratory Rate 24 04/06/2025 6:34 PM EDT Oxygen Saturation 97% 04/06/2025 6:34 PM EDT Inhaled Oxygen Concentration - - Weight 68 kg (150 lb) 05/31/2025 1:52 PM EDT Height 177.8 cm (5' 10 ) 04/06/2025 6:34 PM EDT Body Mass Index 21.52 04/06/2025 6:34 PM EDT Plan of Treatment Upcoming Encounters Date Type Department Care Team (Late st Contact Info) Description 06/28/2025 8:40 AM EST Routine [facility] O[facility] [address] [place] [address] Sumi Chang MD 17[address] [facility] [address] [place] [address] Health Maintenance Due Date Last Done Comments Annual Gynecologic Pelvic an d Breast Exam 2000 HPV VACCINES (1 - 3-dose series) 2015 TDAP/TD VACCINES (1 - Tdap) 2019 INFLUENZA VACCINE 03/24/2025 ANNUAL PHYSICAL 05/03/2025 CHLAMYDIA SCREENING 05/03/2026 05/03/2025, 05/03/2025 PAP SMEAR 05/03/2028 05/03/2025 HEPATITIS C SCREENING Completed 05/03/2025 MENINGOCOCCAL B VACCINE Aged Out No l onger eligible based on patient's age to complete this topic Pneumococcal Vaccine 0-49 Aged Out No longer eligible based on patient's age to complete this topic RSV Vaccine - Adults (No Dos es Required) Completed Procedures Procedure Name Priority Date/Time Associated Diagnosis Comments POCT URINALYSIS DIPSTICK, MANUAL Routine 05/31/2025 1:47 PM EDT care, antepartum, unspecified 12 weeks gestation of [id number] PLUS CORE+SCA+ESS Routine 05/09/2025 1:21 PM EDT care, first in first trimester URINALYSIS AND MICROSCOPIC Routine 05/03/2025 10:12 AM EDT 8 weeks gestation of ~MICROSCOPIC EXAMINATION Routine 05/03/2025 10:12 AM EDT URINE DRUG SCREEN Routine 05/03/2025 10: 12 AM EDT 8 weeks gestation of HIV-1/O/2 ANTIGEN/ANTIBODY Routine 05/03/2025 10:12 AM EDT 8 weeks gestation of OBSTETRIC PANEL Routine 05/03/2025 10:12 AM EDT 8 weeks gestation of CHLAMYDIA TRACHOMATIS, NEISSERIA GONORRHOEAE, PCR Routine 05/03/2025 10:12 AM EDT 8 weeks gestation of URINE CULTURE Routine 05/03/2025 10:12 AM EDT 8 weeks gestation of LIQUID-BASED PAP SMEAR WITH HPV GENOTYPING IF ASCUS, [facility] (GYPSY,COR,MAD) Routine 05/03/2025 10:10 AM EDT 8 weeks gestation of US OB TRANSVAGINAL Routine 05/03/2025 8: 57 AM EDT First trimester POCT PEFORM URINE STAT 04/06/2025 6:44 PM EDT Nausea and vomiting, unspecified vomiting type , unspecified gestational age from Last 3 Months Results * POC Urinalysis Dipstick (05/31/2025 1:47 PM EDT) Glucose, UA Negative Negative mg/dL [facility] Protein, POC Negative Negative mg/dL [facility] Urine 05/31/2025 1:47 PM EDT us Sumi Chang MD POINT OF CARE TEST ORDERABLES Fi nal Result [facility]
[address] [place] [address], * [id number] PLUS Core+SCA+ESS - Blood, (05/09/2025 1:21 PM EDT) Gestation Luna [facility] Fraction 12% [facility] Gestational Age >9: Yes [facility] Result Negative [facility] Attendance Clerk Comments Comment [facility] Comment: This specimen showed an expected representation of chromosome 21, 18 and 13 material. Clinical correlation is suggested. Approved By Comment [facility] Comment:Gus Silva MD , PhD, Director, [employer] TRISOMY 21 (DOWN SYNDROME) Negative [facility] TRISOMY 18 (DENNIS SYNDROME) Negative [facility] TRISOMY 13 (PATAU [...] abnormality is detected. POSITIVE PREDICTIVE VALUE N/A [facility] About The Test Comment [facility] Comment: The MaterniT(R) 21 PLUS laboratory-developed test (LDT) analyzes circulating cell-free DNA from a maternal blood sample. This test is used for screening purposes and not diagnostic. Clinical correlation is recommended. Validation data on twin pregnancies is limited and the ability of this test to detect aneuploidy in higher multiple gestations has not yet been validated. Test Method Comment [facility] Comment: Circulating cell-free DNA was purified [...] of chromosomes 16 and 22. Performance Comment [facility] Comment: The performance characteristics of the MaterniT(R) 21 PLUS laboratory-developed test (LDT) have been determined in a clinical validation study with women at increased risk for chromosomal aneuploidy.[1-4] PERFORMANCE CHARACTERISTICS Note [facility] Comment: ! Sex ! Accuracy: 99.4% ! ! ! ! Region (associated syndrome) ! Est. Sens# ! Est. Spec ! ! ! ! Trisomy 21 (Down Syndrome) ! 99.1% ! 99.9% ! ! ! ! Trisomy 18 (Dennis Syndrome) ! >99.9% ! 99.6% ! ! ! ! Trisomy 13 (Patau Syndrome) ! 91.7% ! 99.7% ! ! ! ! Sex Chromosome Aneuploidies## ! 96.2% ! 99.7% ! ! ! * As reported in [facility] database nstd37 [https://www.ncbi.nlm.nih.gov/dbvar/studies/nstd37/ ] # Estimated [...] Lovenox(R), Xaparin(R), Clexane(R) and Fragmin(R)). Note Comment [facility] Comment: [employer] is a subsidiary of [employer], using the brand [employer]. This test was developed and its performance characteristics determined by [employer]. It has not been cleared or approved by the Food and Drug Administration. This laboratory is certified under the Clinical Laboratory Improvement Amendments (CLIA) as qualified to perform high complexity clinical laboratory testing and accredited by the College [employer] [place] [employer] (CAP). If there is future clinical need for adding MaterniT GENOME testing, this specimen will be available until term. [facility] samples will not be retained beyond 60 days. [facility] patients will have to send a new sample for re-sequencing ([facility] Test Code: 298197). References Comment [facility] Comment: 1. Autumn GARCIA et al. Hedy Med. 2012;14(3):296-305. 2. Nevaeh EVANGELISTA, et al. Prenat Diag. 2013;33(6):591-597. 3. Nelson Jarrett, et al. Clin Chem. 2015 Apr;61(4):608-616. 4. Autumn GARCIA, et al. Hedy Med. 2011;13(11):913-920. 5. ACOG/SMFM Practice Bulletin No. 226, May 2020. Blood 05/09/2025 1:21 PM EDT 05/09/2025 Narrative [facility] (AMBULATORY) - 05/13/2025 6:09 AM EDT Performed at: - [facility] [address] [place] [address] [id number] Attendance Clerk: Gus Ross, Phone: [phone] Patient Fasting: N us Sumi Chang MD GENETIC TESTING Final Result [facility] (AMBULATORY) [address] [place] [address], [facility] [address] [place] [address], * Chlamydia trachomatis, Neisseria gonorrhoeae, PCR - Urine, Urine, Clean Catch (05/03/2025 10:12 AM EDT) Chlamydia trachomatis, JASON Negative Negative [facility] Neisseria gonorrhoeae, JASON Negative Negative [facility] Urine Urine specimen obtained by clean catch procedure / Unknown 05/03/2025 10:12 AM EDT 05/03/2025 Comment:[facility]- [id number] Narrative [facility] (AMBULATORY) - 05/05/2025 7:09 AM EDT Performed at: [address] [place] [id number] Attendance Clerk: Trinity Fischer MD, Phone: [phone] Patient Fasting: N Sumi Chang MD MICROBIOLOGY - GENERAL ORDERABLE S Final Result [facility] [address] [place] [address], [facility] [address] [place] [address], * Microscopic Examination - (05/03/2025 10:12 AM [...] - 05/04/2025 7:09 AM EDT Performed at: [address] [place] [address] [id number] Attendance Clerk: Rolly Fuentes MD, Phone: [phone] Patient Fasting: N us Sumi Chang MD URINE ORDERABLES Final Result Performing Organization Address City/[facility]/ZIP Co de Phone Number [facility] (AMBULATORY) [address] [place] [address], [facility] [address] [place] [address], [place] [phone] * HIV-1 / O / 2 Ag / Antibody (05/03/2025 10:12 AM EDT) HIV Screen 4th Gen w/RFX (Reference) Non Reactive Non Reactive [facility] Comment: HIV-1/HIV-2 antibodies and HIV-1 p24 antigen were NOT detected. There is no laboratory evidence of HIV infection. HIV Negative Blood 05/03/2025 10:1 2 AM EDT 05/03/2025 Narrative [facility] - 05/04/2025 7:09 AM EDT Performed at: 02 - [address] [id number] Attendance Clerk: Conrado Rowell PhD, Phone: [phone] Patient Fasting: N Sumi Chang MD LAB BLOOD ORDERABLES Final Resul t Performing Organization Address [facility] Co de Phone Number [facility] ([facility]BULATORY) [address] [place] [address], [facility] [address] [place] [address], * (ABNORMAL) Urine Drug Screen - Urine, Clean Catch (05/03/2025 10:12 AM EDT) Amphetamine, Urine Qual Negative Cutoff=10 00 ng/mL [...] is inconsistent with an expected outcome. Email: Urine Urine specimen obtained by clean catch procedure / Unknown 05/03/2025 10:12 AM EDT 05/03/2025 Narrative [facility] - 05/05/2025 8:12 AM EDT Performed at: - [address] [id number] Attendance Clerk: Shandra Infante PhD, Phone: [phone] Patient Fasting: N us Sumi Chang MD URINE ORDERABLES Final Result [facility] ([facility]) [address] [place] [address], [place] [phone] [facility] [address] [place] [address], [place] [phone] * (ABNORMAL) Obstetric Panel (05/03/2025 10:12 AM EDT) Pathologist [facility] Hepatitis B Surface Ag Negative Negative [facility] [...] - 05/04/2025 10:11 AM EDT Performed at: - [facility] [address] [place], [place] [id number] Attendance Clerk: Conrado Rowell PhD, Phone: [phone] Patient Fasting: N us Sumi Chang MD LAB BLOOD ORDERABLES Final Resul t [facility] ([facility]) [address] [place] [address], [facility] [address] [place] [address], * (ABNORMAL) Urinalysis With Microscopic - Urine, Clean Catch (05/03/2025 10:12 AM EDT) [facility] Specific [place], UA 1.023 1.005 - 1.030 [facility] [...] - 05/04/2025 7:09 AM EDT Performed at: [address] [place] [id number] Attendance Clerk: Rolly Fuentes MD, Phone: [phone] Patient Fasting: N us Sumi Chang MD URINE ORDERABLES Final Result Performing Organization Address City/[facility] Co de Phone Number [facility] ([facility]BULAT[facility]) [address] [place] [address], [facility] [address] [place] [address], [place] [phone] * Urine Culture - Urine, Urine, Clean Catch (05/03/2025 10:12 AM EDT) Urine Culture Final report [facility] Result 1 No growth [facility] Urine Urine specimen obtained by clean catch procedure / Unknown 05/03/2025 10:12 AM EDT 05/03/2025 Comment:CONRAD FARLEY- [id number] Bhupendra [facility] ([facility]BULATORY) - 05/05/2025 7:09 AM EDT Performed at: 02 - [facility] [address] [place] [id number] Attendance Clerk: Conrado Rowell PhD, Phone: [phone] Patient Fasting: N Sumi Chang MD MICROBIOLOGY - GENERAL ORDERABLE S Final Result Performing Organization Address [facility] Co de Phone Number [facility] [address] [place] [address], [place] [phone] [facility] [address] [place] [address], [place] [phone] * LIQUID-BASED PAP SMEAR WITH HPV GENOTYPING IF ASCUS (GYPSY,COR,MAD) (05/03/2025 10:10 AM EDT) Reference Lab Report FINAL [facility] REPORT ---- DIAGNOSIS: Negative for [...] results can occur. ThinPrep Pap imagined by [employer] (AI assisted system). Screened by SYLVIA WOODWARD (ASCP) 05/04/2025 2:50 PM EDT [facility] ThinPrep Vial Cervix uteri structure / Unknown Collection / Unknown 05/03/2025 10:10 AM EDT 05/03/2025 10:10 AM EDT us Sumi Chang MD PATHOLOGY/CYTOLOGY ORDERABLES Fi nal Result [facility]
[address] [place] [address], * US Ob Transvaginal (05/03/2025 8:57 AM EDT) Anatomical Region Laterality Modality Body Ultrasound 05/03/2025 8:26 AM EDT Narrative 05/09/2025 1:19 PM EDT PAT NAME: CHLOE SALEH MED REC#: [id number] DA: 2000 PAT GEND: F PAT TYPE: O EXAM MARCOS: [id number] REF PHYS SUMI CHANG Indication ======== Dating Comparison Studies There [...] cardiac activity Recommendation Follow-up as clinically indicated. Counseling Services Director: John Brito, RT Physician: Sumi Chang MD, FACOG Electronically signed by: Sumi Chang MD, FACOG at: 13:19 Procedure Note Sumi Chang MD - 05/09/2025 PAT NAME: DELFINOCHLOE MED REC#: [id number] DA: 2000 PAT GEND: F PAT TYPE: O EXAM MARCOS: [id number] REF PHYS SUMI CHANG Indication ======== Dating Comparison Studies There [...] GA8 w + 2 d Assigned ARYA:12/11/2025 [email or web address] d Biometry Standard ENO791 bpm CRL20.1 mm 8w 4d 98% Hadlock [...] cardiac activity Recommendation Follow-up as clinically indicated. Counseling Services Director: John Brito RT Physician: Sumi Chang MD, FACOG Electronically signed by: Sumi Chang MD, FACOG at: 13:19 us Sumi Chang MD [facility] US ORDERABLES Final Result * (ABNORMAL) POC , Urine (04/06/2025 6:44 PM EDT) HCG, Urine, QL Positive(A ) [facility] Lot Number [id number] [facility] Internal Positive Control Passed [facility] Internal Negative Control Passed [facility] Expiration Date [facility] Urine 04/06/2025 6:44 PM EDT us Ramonaibis Rowe VP [employer]NAG[employer] POINT OF CARE TEST ORDERABL ES Final Result [facility]
[address] [place] [address], [place] [phone] from Last 3 Months Insurance [facility] CROSS BLUE SHIELD PPO [employer] Care Teams Dispatcher Service Relationship Specialty Start Date End Date Sumi Chang MD 1700 [facility] [address] [place] [address] PCP - General 04/30/25
--- OUTSIDE RECORDS SUMMARY | 2025-06-21 12:53 | XMS_ITS | Encounter Summary ---
Author Organization [facility] Address [address] [place] [address] Care Team Providers Care Fiscal Accountant Name Role Phone Sumi Chang MD Primary Care Provider Encounter Details Date Type Department Care Team (Latest Contact Info) Description 05/31/2025 Travel Social History Tobacco Use Types Packs/Day Years [...] Description 06/28/2025 8:40 AM EST Routine [facility] [address] [place] [address] Sumi Chang MD [address] [place] [address] documented as of this encounter Visit Diagnoses Not on filedocumented in this encounter Care Teams Fiscal Accountant Relationship Specialty Start Date End Date Sumi Chang MD [address] [place] [id number] PCP - General 04/30/25 documented as of this encounter
--- OUTSIDE RECORDS SUMMARY | 2025-06-21 12:53 | XMS_ITS | Encounter Summary ---
Author Organization [facility] Address [address] [place] [address] Care Team Providers Care Fraternity Adviser Name Role Phone Sumi Chang MD Primary Care Provider [phone] Encounter Details Date Type Department Care Team (Latest Contact Info) Description 05/03/2025 Travel Social History Tobacco Use Types Packs/Day [...] 06/28/2025 8:40 AM EST Routine [facility] [address] [place] [address] Sumi Chang MD [address] [place] [address] documented as of this encounter Visit Diagnoses Not on filedocumented in this encounter Care Teams Fraternity Adviser Relationship Specialty Start Date End Date Sumi Chang MD [address] [place] [id number] PCP - General 04/30/25 documented as of this encounter
--- OUTSIDE RECORDS SUMMARY | 2025-06-21 12:53 | XMS_ITS | Patient Health Record ---
Author Organization [facility] Address [address] [place] [address] Care Team Providers Care Synthetic Cloth Binding Cutter Name Role Phone Migration, Provider Unavailable Unavailable Reason For Referral No Information Medications Medication SIG (Take, Route, Frequency, Duration) [...] review and pick correct strength-formulatio n from Medispan options. If intended option is not shown, discontinue and re-order from Quick Search* 07/09/2017 Active JUNEL (21 DAY) 30 MCG-1.5 MG TABLET TAKE ONE TABLET BY MOUTH DAILY *Please review for potential replacement for e-prescription and drug interaction check* Active Social History Social History Social History Social Info Question Answer Notes Tobacco Use Current smoking status: Never smoked Additional Details Category Social Info Options Details Social History Occupational exposure no Travel outside [place] no Alcohol no Sexually active no Drug use no Exercise yes Home smoke detector use: yes Caffeine yes Marital Status single Children no Pets yes, 1 dog Problems Problem Type SNOMED Code ICD Code Onset Dates Problem Status W/U Status Risk Notes Problem Seasonal allergic rhinitis (649574822) Other seasonal allergic rhinitis (J30.2) Active confirmed Problem Uncomplicated asthma (disorder) (063506901) Unspecified asthma, uncomplicated (J45.909) Active confirmed Encounters Encounter Location Date Provider Diagnosis [facility] [address] [place] [address] 01/28/2025 Provider Migration Plan Of Treatment No Information Insurance Providers Payer Name Payer Address Payer Phone Subscriber Number Group Number Insured Name Patient Relationship to Insured Coverage Start Date Coverage End Date [facility] [address] [place] [address] [id number] Chloe Saleh Self - patient is the insured [facility] [address] [place] [address] [id number] Salina Saleh Child - Insured has Financial Responsibility Medical (General) History Surgical History Surgery Date(Month/Year) wisdom teeth 01/2017
--- OUTSIDE RECORDS SUMMARY | 2025-06-21 12:53 | XMS_ITS | Encounter Summary ---
Author Organization [facility] Address [address] [place] [address] Care Team Providers Care Personal Counselor Name Role Phone Sumi Chang MD Primary Care Provider [phone] Encounter Details Date Type Department Care Team (Latest Contact Info) Description 05/09/2025 Travel Social History Tobacco Use Types Packs/Day [...] 8:40 AM EST Routine [facility] OBGYN [address] [place] [phone] Sumi Chang MD [address] [place] [address] documented as of this encounter Visit Diagnoses Not on filedocumented in this encounter Care Teams Personal Counselor Relationship Specialty Start Date End Date Sumi Chang MD [address] [place] [id number] PCP - General 04/30/25 documented as of this encounter
[2025-06-21 12:54] LABS: Activated Partial Thrombo Time 23.7 seconds (22.8-30.6); INR 0.94 (0.9-1.1); Prothrombin Time 10.5 seconds (10.1-12.5)
[2025-06-21 13:00] VITALS: BP 134/67; PULSE 90; O2SAT 95
[2025-06-21 13:30] VITALS: BP 122/67; PULSE 84; O2SAT 97
[2025-06-21 14:00] VITALS: BP 114/65; PULSE 75; O2SAT 97
[2025-06-21 14:57] VITALS: BP 114/65; PULSE 75; RESP 16; TEMP 36.8; O2SAT 97
[2025-06-21 15:16] LABS: Bacteria,Urine Trace /lpf
== END 2025-06-21 14:58 | disposition home or self-care (01) ==
PROVIDERS: Emergency Provider Student in an Organized Health Care Education/Training Program; PCP Obstetrics & Gynecology
DX: O26.892 Other specified pregnancy related conditions, second trimester (principal); S16.1XXA Strain of muscle, fascia and tendon at neck level, initial encounter; S39.012A Strain of muscle, fascia and tendon of lower back, initial encounter; Z3A.15 15 weeks gestation of pregnancy; V49.40XA Driver injured in collision with unspecified motor vehicles in traffic accident, initial encounter
CPT/HCPCS: 72040; 80053; 81001; 83690; 85025; 85610; 85730; 99284